=== PATIENT | female | born 1980 | race Caucasian/White ===

== ENCOUNTER 2023-12-04 15:05 | Outpatient (REF) | payer BC, SELFPAY ==
[2023-12-06 13:24] LABS: Quantiferon Mitogen >10.00 IU/mL; Quantiferon Nil 0.04 IU/mL; Quantiferon Plus TB1 0.01 IU/mL; Quantiferon Plus TB2 0.01 IU/mL; Quantiferon TB Gold NEGATIVE (NEGATIVE)
== END 2023-12-04 15:06 | disposition home or self-care (01) ==
LOC: LAB 15:05
PROVIDERS: Family Provider Family Medicine; PCP Family Medicine
DX: Z01.89 Encounter for other specified special examinations (principal)
CPT/HCPCS: 86480

== ENCOUNTER 2024-04-21 21:37 | Emergency (ER) | payer SELFPAY ==
[2024-04-21 21:50] VITALS: PULSE 86; RESP 18; TEMP 36.7; O2SAT 99; BMI 30.9
--- NOTE | 2024-04-21 22:01 | ECG_ITS ---
[facility] Test Date: 2024-04-21 Pat Name: Radha Ramon Department: Room: Gender: Female [employer]: : 1980 Requested By: Paradise Tran Order Number: [id number] Reading MD: NEGRO PRASAD Measurements Intervals [place] Rate: 92 P: 20 [place]: 136 QRS: 48 QRSD: 77 T: 47 QT: 386 QTc: 479 Interpretive Statements SINUS RHYTHM LOW QRS VOLTAGE IN PRECORDIAL LEADS [QRS DEFLECTION < 1.0 mV IN CHEST LEADS] SEPTAL MYOCARDIAL INFARCTION , OF INDETERMINATE AGE [40+ ms Q WAVE IN V1/V2] No previous ECG available for comparison Electronically Signed On 04-22-2024 18:55:37 LICENSED DISPENSING OPTICIAN by NEGRO PRASAD [email or web address]
--- NOTE | 2024-04-21 22:05 | ED_ITS ---
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 She denies any chest pain denies any headache states she feels lightheaded still nauseous. Denies any recent illness or fever Associated symptoms: Reports nausea; Deny abdominal pain, chest pain, fever(s) or headache(s) Related Data Previous Rx's Medication Instructions Recorded fluconazole 150 mg tablet 150 mg PO ONCE #1 tab 01/05/22 (Diflucan) triamcinolone acetonide 0.025 % 1 applic topical BID 7 days #15 01/05/22 topical cream grams Allergies Allergy/AdvReac Type Severity Reaction Status Date / Time No Known Allergies Allergy Unverified 01/05/22 17:13 Review of Systems 2 Const: Denies: fever(s), chills, body aches or change in appetite ENMT: Denies: throat pain or dental pain Card: Reports: pre-syncope; Denies: chest pain Resp: Denies: dyspnea GI: Reports: nausea; Denies: abdominal pain, vomiting or diarrhea Musc: Denies: neck pain or back pain Skin/Breast: Denies: rash Neuro: Denies: headache(s) PFSH ED 2 PFSH: Social History Smoking and tobacco/nicotine status: current every day tobacco/nicotine user Alcohol intake: current Substance/Drug Use: never Female Reproductive History: Date of last menstrual period: 04/17/24 Physical Exam 2 Const: COMMON NORMALS: no acute distress, patient oriented x3 and healthy appearing HENMT: COMMON NORMALS: normocephalic and atraumatic HEAD & SCALP: n ormocephalic and atraumatic Eye: COMMON NORMALS: conjunctivae normal CONJUNCTIVA: Yes conjunctivae normal Neck/C-Spine: COMMON NORMALS: supple Chest: COMMONS NORMALS: normal inspection of the chest Resp: COMMON NORMALS: normal respiratory effort, No retractions, No use of accessory muscles and clear to auscultation bilaterally AUSCULTATION: clear to auscultation bilaterally Cardio: COMMON NORMALS: regular rate, regular rhythm and No murmurs present (Cardio) RATE: regular rate RHYTHM: regular rhythm Extremity: COMMON NORMALS: normal to inspection and full ROM Neuro: COMMON NORMALS: patient oriented x3, moves all extremities and no focal motor deficits Psych: COMMON NORMALS: mental status grossly normal, Normal thought process present and cooperative THOUGHT PROCESS: Normal thought process present Skin: COMMON NORMALS: no rashes or lesions noted and no wounds GENERAL SKIN EXAM: no rashes or lesions noted Course 2 Vital Signs: Vital signs: Vital Signs Temperature 98.1 F 04/21/24 21:50 Pulse Rate 93 04/21/24 23:11 Respiratory Rate 20 H 04/21/24 22:20 Blood Pressure 130/83 04/21/24 23:11 Pulse Oximetry 95 04/21/24 22:20 Oxygen Delivery Me thod Room Air 04/21/24 21:50 MDM - Syncope Medical Decision Making Patient presents with near syncopal event. Dehydrated by her labs she feels much improved after fluids her repeat BMP is improved she is ambulatory here no longer symptomatic she stable for discharge she is to follow-up with PCP and return if worsening she understands agrees to plan Medical Records I reviewed the patient's medical records. Lab Data I reviewed the patient's lab results. 04/21/24 22:15 04/21/24 23:38 Radiology Impressions Chest X-Ray 04/21/24 22:22 IMPRESSION: No acute findings. Laboratory Results WBC 13.91 10^3/uL (3.29-11.43) H 04/21/24 22:15 RBC 4.72 10^6/uL (3.85-5.65) 04/21/24 22:15 Hgb 15.30 g/dL (11.27-16.99) 04/21/24 22:15 Hct 43.8 % (36-47) 04/21/24 22:15 MCV 92.8 fl (85-98) 04/21/24 22:15 MCH 32.4 pg (27-33) 04/21/24 22:15 MCHC 34.9 g/dL (30-55) 04/21/24 22:15 RDW 12.4 % (12.1-15.1) 04/21/24 22:15 Plt Count 360 10^3/cmm (157-399) 04/21/24 22:15 MPV 8.8 fL (7.4-10.4) 04/21/24 22:15 Neut % (Auto) 69.8 % 04/21/24 22:15 Lymph % (Auto) 23.9 % 04/21/24 22:15 [place] % (Auto) 4.8 % 04/21/24 22:15 Eos % (Auto) 0.7 % 04/21/24 22:15 Baso % (Auto) 0.4 % 04/21/24 22:15 Neut # (Auto) 9.71 10^3/uL (1.8-7.7) H 04/21/24 22:15 Lymph # (Auto) 3.3 10^3/uL (0.8-4.8) 04/21/24 22:15 [place] # (Auto) 0.7 10^3/uL (0.2-0.9) 04/21/24 22:15 Eos # (Auto) 0.1 10^3/uL (0.0-0.8) 04/21/24 22:15 Baso # (Auto) 0.1 10^3/uL (0.0-0.1) 04/21/24 22:15 Nucleated RBC % (auto) 0 % 04/21/24 22:15 Nucleated RBCs # 0.0 /100WBC 04/21/24 22:15 Sodium 136 mmol/L (136-145) 04/21/24 23:38 Potassium 3.5 mmol/L (3.5-5.1) 04/21/24 23:38 Chloride 102 mmol/L (98-107) 04/21/24 23:38 Carbon Dioxide 21 mmol/L (22-29) L 04/21/24 23:38 Anion Gap 16.5 (5-19) 04/21/24 23:38 BUN 15 mg/dL (6-20) 04/21/24 23:38 Creatinine 1.0 mg/dL (0.5-0.9) H 04/21/24 23:38 GFR Calculation 61.1 mL/min (90-130) L 04/21/24 23:38 Glucose 107 mg/dL (65-115) 04/21/24 23:38 Calculated Osmolality 283 mOsm/kg (285-295) L 04/21/24 23:38 Calcium 7.8 mg/dL (8.5-10.5) L 04/21/24 23:38 Total Bilirubin 0.6 mg/dL (0.15-1.2) 04/21/24 22:15 AST 21 U/L (0-32) 04/21/24 22:15 ALT 31 U/L (0-33) 04/21/24 22:15 Alkaline Phosphatase 59 U/L (35-105) 04/21/24 22:15 Total Protein 8.0 g/dL (6.6-8.7) 04/21/24 22:15 Albumin 4.6 g/dL (3.5-5.2) 04/21/24 22:15 Globulin 3.4 g/dL (1.3-4.6) 04/21/24 22:15 HCG, Qual Negative (Negative) 04/21/24 22:15 All radiology interpretation(s) finalized by discharge EKG Data EKG 1: I personally reviewed and interpreted this EKG as follows: EKG interpretation date: 04/21/24 EKG interpretation time: 22:07 Interpretation: nsr hr [address] elevation qrs 77 qtc 436 Discharge Plan Discharge Patient Disposition: Home Clinical Impression: Near syncope, Dehydration Condition: Stable Prescriptions: No Action triamcinolone acetonide 0.025 % cream 1 applic topical BID 7 Days Qty: 15 0RF fluconazole [Diflucan] 150 mg tablet 150 mg PO ONCE Qty: 1 0RF Discharge Orders: Discharge ED (Routine); Ordered 04/22/24 Ordered By: Paradise Tran Referrals: Aryan Pitts MD [Primary Care Provider] - 4-7 days Discharge Diet: Advance as tolerated Discharge Activity: Resume usual activity Patient Instructions: Near Syncope (ED) Coding Level of Care Code ED Radiology Therapist for Myriam Noble
[2024-04-21 22:20] VITALS: BP 99/74; PULSE 94; RESP 20; O2SAT 95
[2024-04-21 22:20] LABS: Basophils # 0.1 10^3/uL (0.0-0.1); Basophils % 0.4 %; Eosinophils # 0.1 10^3/uL (0.0-0.8); Eosinophils % 0.7 %; Hematocrit 43.8 % (36-47); Lymphocytes # 3.3 10^3/uL (0.8-4.8); Lymphocytes % 23.9 %; Mean Corpuscular HGB Conc 34.9 g/dL (30-55); Mean Corpuscular Hemoglobin 32.4 pg (27-33); Mean Corpuscular Volume 92.8 fl (85-98); Mean Platelet Volume 8.8 fL (7.4-10.4); Monocytes # 0.7 10^3/uL (0.2-0.9); Monocytes % 4.8 %; Neutrophils # 9.71 10^3/uL (1.8-7.7); Neutrophils % 69.8 %; Nucleated Red Blood Cells % 0 %; Platelet Count 360 10^3/cmm (157-399); Red Blood Count 4.72 10^6/uL (3.85-5.65); Red Cell Distribution Width 12.4 % (12.1-15.1); White Blood Count 13.91 10^3/uL (3.29-11.43)
[2024-04-21] MEDS: sodium chloride 0.9% 1,000 ML 999 ML IV ×2 (22:22→23:10)
--- NOTE | 2024-04-21 22:22 | XRR_ITS ---
PROCEDURE INFORMATION: Exam: XR Chest Exam date and time: 04/21/2024 10:59 PM Age: 43 years old Clinical indication: Other: Hypotension; Patient HX: Syncope; Hyptension TECHNIQUE: Imaging protocol: Radiologic exam of the chest. Views: 1 view. COMPARISON: No relevant prior studies available. FINDINGS: Lungs: Unremarkable. No consolidation. Pleural spaces: Unremarkable. No pleural effusion. No pneumothorax. Heart/Mediastinum: Unremarkable. No cardiomegaly. Bones/joints: Unremarkable. XR/XR chest 1V portable [id number] IMPRESSION: No acute findings.
[2024-04-21 22:32] LABS: HCG, Serum Qual Negative (Negative)
[2024-04-21 22:37] LABS: Albumin Level 4.6 g/dL (3.5-5.2); Alkaline Phosphatase 59 U/L (35-105); Anion Gap 25.5 (5-19); Aspartate Amino Transferase 21 U/L (0-32); Blood Urea Nitrogen 15 mg/dL (6-20); Calcium 8.6 mg/dL (8.5-10.5); Carbon Dioxide 17 mmol/L (22-29); Chloride 99 mmol/L (98-107); Creatinine Clr Calc Pharmacy 56.8117; Globulin 3.4 g/dL (1.3-4.6); Glomerular Filtration Rate 45.1 mL/min (90-130); Glucose 133 mg/dL (65-115); Osmolality Calculated 289 mOsm/kg (285-295); Potassium 3.5 mmol/L (3.5-5.1); Sodium 138 mmol/L (136-145); Total Bilirubin 0.6 mg/dL (0.15-1.2)
[2024-04-21 22:59] LABS: Alanine Aminotransferase 31 U/L (0-33)
[2024-04-21 23:11] VITALS: BP 118/77; BP 123/86; BP 130/83; PULSE 109; PULSE 93; PULSE 94
[2024-04-22 00:03] LABS: Anion Gap 16.5 (5-19); Blood Urea Nitrogen 15 mg/dL (6-20); Calcium 7.8 mg/dL (8.5-10.5); Carbon Dioxide 21 mmol/L (22-29); Chloride 102 mmol/L (98-107); Creatinine Clr Calc Pharmacy 73.8552; Glomerular Filtration Rate 61.1 mL/min (90-130); Glucose 107 mg/dL (65-115); Osmolality Calculated 283 mOsm/kg (285-295); Potassium 3.5 mmol/L (3.5-5.1); Sodium 136 mmol/L (136-145)
[2024-04-22 00:17] VITALS: BP 136/97; PULSE 100; RESP 16; O2SAT 95
== END 2024-04-22 00:19 | disposition home or self-care (01) ==
PROVIDERS: Emergency Provider Emergency Medicine; PCP Family Medicine
DX: R55 Syncope and collapse (principal); E86.0 Dehydration; Z72.0 Tobacco use
CPT/HCPCS: 36415; 71045; 80048; 80053; 84703; 85025; 93005; 96360; 96361; 99285; J7030

== ENCOUNTER 2024-11-03 05:56 | Emergency (ER) | payer OTHER, SELFPAY ==
[2024-11-03 06:05] VITALS: BP 182/126; PULSE 92; RESP 18; TEMP 36.6; O2SAT 98; BMI 30.9
[2024-11-03 06:40] LABS: Basophils % 0.7 %; Eosinophils # 0.2 10^3/uL (0.0-0.8); Eosinophils % 2.5 %; Hematocrit 38.1 % (36-47); Lymphocytes # 2.9 10^3/uL (0.8-4.8); Lymphocytes % 48.7 %; Mean Corpuscular HGB Conc 34.9 g/dL (30-55); Mean Corpuscular Hemoglobin 31.5 pg (27-33); Mean Corpuscular Volume 90.3 fl (85-98); Mean Platelet Volume 9.3 fL (7.4-10.4); Monocytes # 0.7 10^3/uL (0.2-0.9); Monocytes % 11.1 %; Neutrophils # 2.19 10^3/uL (1.8-7.7); Neutrophils % 36.7 %; Nucleated Red Blood Cells % 0 %; Platelet Count 331 10^3/cmm (157-399); Red Blood Count 4.22 10^6/uL (3.85-5.65); Red Cell Distribution Width 12.1 % (12.1-15.1); White Blood Count 5.96 10^3/uL (3.29-11.43)
[2024-11-03 06:59] LABS: Alanine Aminotransferase 59 U/L (0-33); Albumin Level 4.4 g/dL (3.5-5.2); Alkaline Phosphatase 72 U/L (35-105); Anion Gap 18.6 (5-19); Aspartate Amino Transferase 42 U/L (0-32); Blood Urea Nitrogen 9 mg/dL (6-20); Calcium 8.1 mg/dL (8.5-10.5); Carbon Dioxide 21 mmol/L (22-29); Chloride 102 mmol/L (98-107); Creatinine Clr Calc Pharmacy 121.8486; Globulin 3.4 g/dL (1.3-4.6); Glomerular Filtration Rate 109.6 mL/min (90-130); Glucose 98 mg/dL (65-115); Osmolality Calculated 285 mOsm/kg (285-295); Potassium 3.6 mmol/L (3.5-5.1); Sodium 138 mmol/L (136-145); Total Bilirubin 0.3 mg/dL (0.15-1.2); Total Protein 7.8 g/dL (6.6-8.7)
== END 2024-11-03 07:29 | disposition left against medical advice (07) ==
PROVIDERS: Emergency Medicine; Emergency Provider Family Medicine; PCP Family Medicine
DX: Z01.89 Encounter for other specified special examinations (principal); Z53.21 Procedure and treatment not carried out due to patient leaving prior to being seen by health care provider
CPT/HCPCS: 80053; 85025